=== PATIENT | female | born 1975 | race Caucasian/White ===

== ENCOUNTER → 2017-03-31 | Outpatient (CLI) | payer OTHER ==
--- NOTE | 2017-03-31 08:17 | RAD ---
Chest, 2 views, 03/31/2017: History: Cough The heart size and pulmonary vascularity are normal. No pulmonary infiltrates are seen. There is no evidence of pleural fluid. IMPRESSION: No acute cardiopulmonary abnormality is detected.
== END | disposition home or self-care (01) ==
LOC: PMG 07:57
PROVIDERS: ATTEND Physician Assistant Medical
DX: R09.89 Other specified symptoms and signs involving the circulatory and respiratory systems (principal)
CPT/HCPCS: 71046

== ENCOUNTER → 2017-12-06 | Outpatient (CLI) | payer OTHER ==
--- NOTE | 2017-12-07 13:12 | RAD ---
DATE: 12/06/2017 EXAM: MAMMO DANAE SCREENING BILATERAL HISTORY: Routine screening COMPARISON: 04/17/2014 This study was interpreted with the benefit of Computerized Aided Detection (CAD). Breast Density: SCATTERED The breast parenchyma shows scattered fibroglandular densities. Breast parenchyma level B. FINDINGS: 2-D and 3-D tomosynthesis imaging was performed in CC and MLO projections. The fibroglandular pattern is heterogeneous. No new or enlarging breast densities are seen. Minimal benign type calcification is present. No suspicious microcalcifications have developed. IMPRESSION: Stable mammograms without evidence of malignancy. BI-RADS CATEGORY: 2 BENIGN FINDING(S) RECOMMENDED FOLLOW-UP: 12M 12 MONTH FOLLOW-UP PQRS compliance statement: Patient information was entered into a reminder system with a target due date for the next mammogram. Mammography is a sensitive method for finding small breast cancers, but it does not detect them all and is not a substitute for careful clinical examination. A negative mammogram does not negate a clinically suspicious finding and should not result in delay in biopsying a clinically suspicious abnormality. "Our facility is accredited by the [employer] Mammography Program."
== END | disposition home or self-care (01) ==
LOC: MAMMO 10:59
PROVIDERS: ATTEND Physician Assistant Medical
DX: Z12.31 Encounter for screening mammogram for malignant neoplasm of breast (principal)
CPT/HCPCS: 77063; 77067

== ENCOUNTER → 2018-10-10 | Outpatient (CLI) | payer OTHER ==
--- NOTE | 2018-10-10 16:31 | RAD ---
EXAM: Lumbar spine, 5 views; right hip, 2 views. HISTORY: Pain. COMPARISON: None. 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 There is no listhesis. The vertebral benson are normal in height. There is mild disc space narrowing at L5-S1. Right hip: 2 views of the right hip are obtained. There is no fracture, dislocation or subluxation. There is an os acetabulum. There is a small suspected synovial herniation pit. There is a bone island within the femoral head. IMPRESSION: 1. No acute osseous finding. 2. Mild disc space narrowing at L5-S1. Electronically signed by: Sindi Hess MD (10/10/2018 4:27 PM) [place] [id number]
== END | disposition home or self-care (01) ==
LOC: RAD 15:43
PROVIDERS: ATTEND Physician Assistant Medical
DX: M48.07 Spinal stenosis, lumbosacral region (principal); G89.29 Other chronic pain
CPT/HCPCS: 72110; 73502

== ENCOUNTER → 2020-05-22 | Outpatient (CLI) | payer OTHER ==
--- NOTE | 2020-05-22 19:30 | RAD ---
Right hand 2 views: Reason for examination: Lump at base of thumb. No fracture or dislocation is seen. The bone density is normal. No abnormal periosteal reaction is se en. Joint spaces are maintained. IMPRESSION: No acute bony abnormalities evident in the right hand. Electronically signed by: Dionna Haley MD (05/22/2020 7:28 PM) [facility]
== END ==
LOC: RAD 10:18
PROVIDERS: ATTEND Physician Assistant Medical
DX: M79.644 Pain in right finger(s) (principal)
CPT/HCPCS: 73120